=== PATIENT | female | born 1945 ===

== ENCOUNTER 2020-03-06 08:36 | Day surgery (SDC) | payer OTHER | END 2020-03-06 14:00 | disposition home or self-care (01) | LOC: AMB-ENDOS 08:36 → ADM 10:30 → CIR.AMB 10:30 → AMB-ENDOS 14:00 | PROVIDERS: ATTEND Surgery | DX: D12.0 Benign neoplasm of cecum (principal); D12.4 Benign neoplasm of descending colon; D12.5 Benign neoplasm of sigmoid colon; K64.8 Other hemorrhoids ==